=== PATIENT | female | born 1975 | race African-American/Black ===

== ENCOUNTER 2024-10-21 20:06 | Emergency (ER) | payer MEDICAID ==
[~2024-10-21] VITALS: Ht 167.6 cm; Wt 75.0 kg
[2024-10-21 20:10] VITALS: O2SAT 99
[2024-10-21] MEDS: DIPHENHYDRAMINE 50MG/ML VIAL IM STA (21:14)
[2024-10-21] MEDS: HALOPERIDOL LACTATE 5MG/ML VIAL IM STA (21:15)
[2024-10-21 21:27] LABS: BASOPHILS % 0.4 % (0.0-2.0); EOSINOPHILS % 2.2 % (0.0-5.0); HEMATOCRIT. 37.5 % (36.0-48.0); HEMOGLOBIN. 12.5 g/dL (12.0-16.0); LYMPHOCYTES % 18.2 % (20.0-50.0); MEAN CORPUSCULAR HEMOGLOBIN 31.8 pg (28.0-32.0); MEAN CORPUSCULAR HGB CONC 33.2 g/dL (31.0-37.0); MEAN CORPUSCULAR VOLUME 95.7 fL (81.0-99.0); MEAN PLATELET VOLUME 7.3 fl (7.4-10.4); MONOCYTES % 13.4 % (2.0-8.0); NEUTROPHILS % 65.8 % (40.0-76.0); PLATELET 359 x1000/uL (130-400); RED BLOOD CELL COUNT 3.92 mill/uL (4.2-5.4); RED CELL DISTRIBUTION WIDTH 12.9 % (11.6-14.6); WHITE BLOOD COUNT 8.9 x1000/uL (4.5-11.0)
[2024-10-21 21:35] LABS: CLARITY URINE TURBID (CLEAR); COLOR URINE DARK YELLOW (YELLOW); GLUCOSE URINE NEGATIVE (NEGATIVE); KETONES URINE 1+ (NEGATIVE); LEUKOCYTE ESTERASE URINE NEGATIVE (NEGATIVE); NITRITE URINE NEGATIVE (NEGATIVE); OCCULT BLOOD URINE NEGATIVE (NEGATIVE); PH URINE 5.5 (4.5-8.0); PROTEIN URINE TRACE (NEGATIVE); SPECIFIC GRAVITY URINE 1.026 (1.005-1.030)
[2024-10-21 21:42] LABS: CARBON DIOXIDE 26 mEq/L (21-32); CHLORIDE 104 mEq/L (98-107); POTASSIUM 3.6 mEq/L (3.5-5.1); SODIUM 138 mEq/L (136-145)
[2024-10-21 21:43] LABS: CALCIUM 9.8 mg/dL (8.7-10.4)
[2024-10-21 21:48] LABS: CREATININE 0.5 mg/dL (0.6-1.0); GLUCOSE 93 mg/dL (70-105); UREA NITROGEN BLOOD 13 mg/dL (9-23)
[2024-10-21 21:49] LABS: WBC URINE 0-2 /hpf (0-2)
[2024-10-21 21:50] LABS: BACTERIA URINE 3+; CALCIUM OXALATE CRYSTALS URINE 1+ /lpf; RBC URINE 0-2 /hpf (0-2); SQUAMOUS EPITHELIAL CELL URINE 1+ /lpf (RARE/1+)
[2024-10-21 21:50] LABS: ETHANOL BLOOD < 10 mg/dL (<10)
[2024-10-21 21:58] LABS: *AMPHETAMINES SCREEN URINE NEGATIVE (NEGATIVE); *BARBITURATES SCREEN URINE NEGATIVE (NEGATIVE); *BENZODIAZEPINES SCREEN URINE NEGATIVE (NEGATIVE); *COCAINE SCREEN URINE NEGATIVE (NEGATIVE); CANNABINOID URINE SCREEN NEGATIVE (NEGATIVE); ECSTASY MDMA SCREEN URINE NEGATIVE (NEGATIVE); METHADONE URINE SCREEN NEGATIVE (NEGATIVE); OPIATES URINE SCREEN NEGATIVE (NEGATIVE); PHENCYCLIDINE URINE SCREEN NEGATIVE (NEGATIVE)
[2024-10-22] MEDS: HYDROCODONE/ACETAMINOPHEN 5/325MG TABLET PO ONE (02:23)
[2024-10-22] MEDS: CEFAZOLIN 1000MG PREMIX 50 ML IV ONE (02:48)
[2024-10-22 05:29] LABS: HCG SCREEN NEGATIVE
[2024-10-22 11:39] VITALS: BP 126/70; PULSE 80; RESP 16; TEMP 36.89184; O2SAT 100
== END 2024-10-22 12:06 | disposition home or self-care (01) ==
LOC: ER 20:06
DX: R46.2 Strange and inexplicable behavior (principal); I10 Essential (primary) hypertension; Z86.59 Personal history of other mental and behavioral disorders; Z20.822 Contact with and (suspected) exposure to COVID-19
CPT/HCPCS: 80305; 80048; 81003; 80307; 80320; 85025; 36415; 96372; 99285; 87426; 80329; 84703; 71045; 96365; J1200; J1630; Z7610; J0690; G0480

== ENCOUNTER 2024-11-30 21:18 | Emergency (ER) | payer MEDICAID ==
[~2024-11-30] VITALS: Ht 170.2 cm; Wt 81.0 kg
[2024-11-30 21:23] VITALS: O2SAT 96
[2024-11-30] MEDS: LORAZEPAM 2MG/ML INJ IM ONE (22:06)
[2024-11-30] MEDS: HALOPERIDOL LACTATE 5MG/ML VIAL IM ONE (22:06)
[2024-11-30] MEDS: DIPHENHYDRAMINE 50MG/ML VIAL IM ONE (22:06)
[2024-11-30 23:39] LABS: BASOPHILS % 0.7 % (0.0-2.0); EOSINOPHILS % 1.2 % (0.0-5.0); HEMATOCRIT. 35.5 % (36.0-48.0); HEMOGLOBIN. 11.7 g/dL (12.0-16.0); LYMPHOCYTES % 22.9 % (20.0-50.0); MEAN CORPUSCULAR HEMOGLOBIN 31.1 pg (28.0-32.0); MEAN CORPUSCULAR VOLUME 94.2 fL (81.0-99.0); MEAN PLATELET VOLUME 8.1 fl (7.4-10.4); MONOCYTES % 10.8 % (2.0-8.0); NEUTROPHILS % 64.4 % (40.0-76.0); PLATELET 302 x1000/uL (130-400); RED BLOOD CELL COUNT 3.76 mill/uL (4.2-5.4); RED CELL DISTRIBUTION WIDTH 13.3 % (11.6-14.6)
[2024-11-30 23:45] LABS: CARBON DIOXIDE 24 mEq/L (21-32); CHLORIDE 107 mEq/L (98-107); POTASSIUM 3.4 mEq/L (3.5-5.1); SODIUM 142 mEq/L (136-145)
[2024-11-30 23:46] LABS: CALCIUM 10.1 mg/dL (8.7-10.4)
[2024-11-30 23:50] LABS: HCG SCREEN NEGATIVE
[2024-11-30 23:51] LABS: CREATININE 0.7 mg/dL (0.6-1.0); GLUCOSE 119 mg/dL (70-105); UREA NITROGEN BLOOD 15 mg/dL (9-23)
[2024-11-30 23:52] LABS: ALANINE AMINOTRANSFERASE 13 IU/L (10-49); ASPARTATE AMINOTRANSFERASE 17 IU/L (<34); ETHANOL BLOOD < 10 mg/dL (<10)
[2024-11-30 23:53] LABS: ACETAMINOPHEN < 2 ug/mL (10-30); ALBUMIN 4.5 g/dL (3.2-4.8); BILIRUBIN DIRECT 0.3 mg/dL (<=3.0); BILIRUBIN TOTAL 0.7 mg/dL (0.1-1.0); PROTEIN TOTAL 7.6 g/dL (6.0-8.3)
[2024-11-30 23:59] LABS: *AMPHETAMINES SCREEN URINE NEGATIVE (NEGATIVE); *BARBITURATES SCREEN URINE NEGATIVE (NEGATIVE); *BENZODIAZEPINES SCREEN URINE NEGATIVE (NEGATIVE); *COCAINE SCREEN URINE NEGATIVE (NEGATIVE); METHADONE URINE SCREEN NEGATIVE (NEGATIVE); OPIATES URINE SCREEN NEGATIVE (NEGATIVE); PHENCYCLIDINE URINE SCREEN NEGATIVE (NEGATIVE)
[2024-12-01] LABS: CANNABINOID URINE SCREEN NEGATIVE (NEGATIVE); ECSTASY MDMA SCREEN URINE NEGATIVE (NEGATIVE)
[2024-12-01] MEDS: POTASSIUM CHLORIDE 20MEQ/PACKET PO NR (00:34)
[2024-12-01 01:46] LABS: CLARITY URINE CLEAR (CLEAR); COLOR URINE DARK YELLOW (YELLOW)
[2024-12-01 01:47] LABS: GLUCOSE URINE NEGATIVE (NEGATIVE); KETONES URINE 1+ (NEGATIVE); OCCULT BLOOD URINE NEGATIVE (NEGATIVE); PH URINE 5.5 (4.5-8.0); PROTEIN URINE TRACE (NEGATIVE); SPECIFIC GRAVITY URINE 1.024 (1.005-1.030)
[2024-12-01 01:48] LABS: LEUKOCYTE ESTERASE URINE TRACE (NEGATIVE); NITRITE URINE NEGATIVE (NEGATIVE)
[2024-12-01] MEDS: OLANZAPINE 10 MG/VIAL IM ONE (08:10)
[2024-12-01] MEDS: LORAZEPAM 2MG/ML INJ IM ONE (08:10)
[2024-12-01 15:01] VITALS: BP 128/93; PULSE 94; RESP 18; TEMP 36.83628; O2SAT 100
== END 2024-12-01 16:20 ==
LOC: ER 21:18
DX: R46.2 Strange and inexplicable behavior (principal); I10 Essential (primary) hypertension; Z20.822 Contact with and (suspected) exposure to COVID-19; Z98.890 Other specified postprocedural states; Z86.59 Personal history of other mental and behavioral disorders
CPT/HCPCS: 80076; 80305; 80048; 81003; 80307; 80329; 80320; 84703; 85025; 36415; 96372 ×2; 99291; 87426; J1200; J1630; J2060 ×2; J3490; G0480